=== PATIENT | female | born 1965 | race Two or more races ===

== ENCOUNTER 2018-01-04 13:44 | Emergency (ER) | payer SELFPAY ==
[~2018-01-04] VITALS: Ht 162.6 cm; Wt 71.2 kg
[2018-01-04 14:52] LABS: Basophils # (auto) 0.1 uL; Basophils % (auto) 0.6 % (0.0-2.0); Eosinophils # (auto) 0.1 uL; Eosinophils % (auto) 1.1 % (0.0-7.0); Hematocrit 43.9 % (36.0-46.0); Hemoglobin 15.4 g/dL (12.2-16.2); Lymphocytes # (auto) 2.7 uL; Lymphocytes % (auto) 25.4 % (10.0-50.0); Mean Corpuscular Hemoglobin 33.5 pg (28.0-32.0); Mean Corpuscular Volume 95.7 fL (80.0-100.0); Monocytes # (auto) 0.7 uL; Monocytes % (auto) 6.5 % (0.0-12.0); Neutrophils % (auto) 66.4 % (37.0-80.0); Nucleated Red Blood Cells % 0.1 %; Platelet Count (auto) 237 10^3/uL (140-450); Red Blood Cells 4.59 10^6/uL (4.0-5.20); Red Cell Distribution Width 12.5 % (11.8-14.3); White Blood Cell 10.6 10^3/uL (4.4-10.8)
[2018-01-04 14:58] LABS: Urine Bacteria NONE SEEN /hpf (None Seen); Urine Blood 1+ /uL (Negative); Urine Mucus FEW (None Seen); Urine Specific Gravity 1.035 (1.001-1.035); Urine WBC 6 /hpf (0 - 5)
[2018-01-04 15:17] LABS: Albumin 3.8 g/dL (3.4-5.0); BUN/Creatinine Ratio 20.9; Bilirubin, Total 0.9 mg/dL (0.2-1.0); Calcium 9.2 mg/dL (8.5-10.1); Potassium 3.7 mmol/L (3.5-5.1); Total Protein 8.2 g/dL (6.4-8.2)
[2018-01-04] MEDS ORDERED: SODIUM CHLORIDE 0.9% 1,000 ML IV ONE (15:45)
[2018-01-04] MEDS ORDERED: DONNATAL 5ml ORAL Elix (BELLADONNA ALK-PHENOBARB) PO ONE (16:00)
[2018-01-04] MEDS ORDERED: ALUM & MAG HYDROX-SIMETH LIQ(MAALOX) 30 ML PO ONE (16:00)
[2018-01-04] MEDS ORDERED: LIDOCAINE VISCOUS 2% 15ML UD PO ONE (16:00)
[2018-01-04] MEDS ORDERED: KETOROLAC TROMETH 30 MG/ML 1ML VIAL IV ONE (17:15)
[2018-01-04] MEDS: cloNIDine HCL 0.1 MG TAB ONE ×2 (17:57→18:00)
[2018-01-04] MEDS ORDERED: cloNIDine HCL 0.1 MG TAB PO ONE (18:45)
[2018-01-04 19:30] VITALS: BP 182/89
== END 2018-01-04 19:57 | disposition home or self-care (01) ==
LOC: ER 13:50
DX: K29.70 Gastritis, unspecified, without bleeding (principal); N20.0 Calculus of kidney; Z90.49 Acquired absence of other specified parts of digestive tract
CPT/HCPCS: 36415; 74176; 80053; 81001; 81025; 83690; 85025; 96361; 96374; 99285; J1885; J7030; 93005

== ENCOUNTER 2020-11-25 08:30 | Emergency (ER) | payer SELFPAY ==
[~2020-11-25] VITALS: Ht 152.4 cm; Wt 63.5 kg
[2020-11-25 08:40] VITALS: BP 173/97
== END 2020-11-25 09:37 | disposition left against medical advice (07) ==
LOC: ER 08:30
DX: R07.89 Other chest pain (principal); R42 Dizziness and giddiness; R06.02 Shortness of breath; R11.0 Nausea; Z53.21 Procedure and treatment not carried out due to patient leaving prior to being seen by health care provider
CPT/HCPCS: 71046; 93005

== ENCOUNTER → 2021-11-27 | Outpatient (CLI) | payer MEDICAID ==
[~2021-11-27] VITALS: Ht 147.3 cm; Wt 61.2 kg
[~2021-11-27] MED LIST: ADENOSINE 51 MG in GIVE UN-DILUTED 0 ML IV ONE; ADENOSINE 90 MG/30 ML INJ IV ONE
== END | disposition home or self-care (01) ==
LOC: Rad HDHVI 13:37
PROVIDERS: ATTEND Internal Medicine
DX: I25.2 Old myocardial infarction (principal); R07.9 Chest pain, unspecified; R06.02 Shortness of breath; I11.0 Hypertensive heart disease with heart failure; I50.9 Heart failure, unspecified; I42.9 Cardiomyopathy, unspecified; R06.09 Other forms of dyspnea; E78.5 Hyperlipidemia, unspecified; E11.9 Type 2 diabetes mellitus without complications
CPT/HCPCS: 78452; 93005; 96374; 96375; A9500; J0153

== ENCOUNTER 2022-02-04 18:37 | Emergency (ER) | payer MEDICAID ==
[~2022-02-04] VITALS: Ht 144.8 cm; Wt 62.0 kg
[2022-02-05 03:00] VITALS: BP 142/61
== END 2022-02-05 03:06 | disposition home or self-care (01) ==
LOC: ER 18:39
DX: Z48.01 Encounter for change or removal of surgical wound dressing (principal); Z90.49 Acquired absence of other specified parts of digestive tract

== ENCOUNTER → 2022-02-26 | Outpatient (CLI) | payer MEDICAID | END | disposition home or self-care (01) | LOC: Rad HDHVI 13:41 | PROVIDERS: ATTEND Internal Medicine | DX: I08.1 Rheumatic disorders of both mitral and tricuspid valves (principal); R07.9 Chest pain, unspecified; R06.02 Shortness of breath | CPT/HCPCS: 93306 ==

== ENCOUNTER 2022-08-30 23:57 | Inpatient (IN) | payer MEDICAID ==
[~2022-08-30] VITALS: Ht 160 cm; Wt 68.1 kg
[2022-08-31] MEDS ORDERED: MORPHINE SULFATE 4 MG/ML SYR/VIAL IV ONE ×2 (00:15→02:15)
[2022-08-31] MEDS ORDERED: ONDANSETRON HCL 4 MG/2 ML VIAL IV ONE ×2 (00:15→02:15)
[2022-08-31 00:29] LABS: Basophils # (auto) 0.1 10 ^3/uL (0-0.2); Basophils % (auto) 0.7 % (0.0-2.0); Eosinophils # (auto) 0.1 10 ^3/uL (0-0.8); Eosinophils % (auto) 1.2 % (0.0-7.0); Hematocrit 38.1 % (36.0-46.0); Hemoglobin 13.5 g/dL (12.2-16.2); Lymphocytes % (auto) 37.7 % (10.0-50.0); Mean Corpuscular Hemoglobin 32.6 pg (28.0-32.0); Mean Corpuscular Hgb Conc. 35.3 g/dL (32.0-36.0); Mean Corpuscular Volume 92.4 fL (80.0-100.0); Monocytes # (auto) 0.7 10 ^3/uL (0-1.3); Neutrophils # (auto) 4.1 10 ^3/uL (1.6-8.6); Neutrophils % (auto) 51.4 % (37.0-80.0); Nucleated Red Blood Cells % 0.1 %; Red Blood Cells 4.13 10^6/uL (4.0-5.20); Red Cell Distribution Width 13.3 % (11.8-14.3)
[2022-08-31 01:06] LABS: Albumin 3.9 g/dL (3.4-5.0); BUN/Creatinine Ratio 17.8 (10.0-20.0); Calcium 9.2 mg/dL (8.5-10.1); INR 0.94 (0.9-1.15); Magnesium 2.2 mg/dL (1.6-2.6); Partial Thromboplastin Time 25.9 sec (24.6-33.4); Potassium 3.5 mmol/L (3.5-5.1)
[2022-08-31 01:08] LABS: Bilirubin, Total 0.5 mg/dL (0.2-1.0); Total Protein 7.4 g/dL (6.4-8.2)
[2022-08-31] MEDS ORDERED: LACTATED RINGER'S 1,000 ML IV ONE (02:15)
[2022-08-31] MEDS ORDERED: ATORVASTATIN 20 MG TAB PO ONE (02:15)
[2022-08-31] MEDS ORDERED: HEPARIN DRIP/D5W 100UNITS/ML 250 ML IV SCH (02:15)
[2022-08-31] MEDS ORDERED: METOPROLOL TARTRATE 1MG/1ML-5ML VIAL IV ONE (02:15)
[2022-08-31] MEDS ORDERED: HEPARIN SODIUM (PORCINE) 5000 UNITS/ML 1ML VIAL IV ONE (02:15)
[2022-08-31] MEDS ORDERED: ONDANSETRON HCL 4 MG/2 ML VIAL IV PRN (06:15)
[2022-08-31] MEDS ORDERED: DOCUSATE SOD 100 MG CAP PO PRN (06:15)
[2022-08-31] MEDS ORDERED: DEXTROSE (50%) 50ML SYRG IV PRN (06:15)
[2022-08-31] MEDS: ACCU-CHEK COMFORT CURVE STRIP VI SCH ×4 (06:53→22:28)
[2022-08-31 06:54] LABS: Basophils # (auto) 0.1 10 ^3/uL (0-0.2); Basophils % (auto) 0.5 % (0.0-2.0); Eosinophils # (auto) 0.1 10 ^3/uL (0-0.8); Hematocrit 38.2 % (36.0-46.0); Hemoglobin 12.8 g/dL (12.2-16.2); Lymphocytes % (auto) 18.1 % (10.0-50.0); Mean Corpuscular Hemoglobin 31.9 pg (28.0-32.0); Mean Corpuscular Hgb Conc. 33.4 g/dL (32.0-36.0); Mean Corpuscular Volume 95.5 fL (80.0-100.0); Monocytes # (auto) 0.7 10 ^3/uL (0-1.3); Monocytes % (auto) 6.7 % (0.0-12.0); Neutrophils # (auto) 8.3 10 ^3/uL (1.6-8.6); Neutrophils % (auto) 73.7 % (37.0-80.0); Nucleated Red Blood Cells % 0.1 %; Red Cell Distribution Width 12.7 % (11.8-14.3); White Blood Cell 11.2 10^3/uL (4.4-10.8)
[2022-08-31] MEDS: InsuLIN REG 1unit/0.01ml Soln (100units/ml) SC SCH ×4 (06:57→22:32)
[2022-08-31 07:04] LABS: Albumin 3.4 g/dL (3.4-5.0); Calcium 8.8 mg/dL (8.5-10.1); Potassium 3.9 mmol/L (3.5-5.1)
[2022-08-31 07:06] LABS: BUN/Creatinine Ratio 22.1 (10.0-20.0); Total Protein 7.1 g/dL (6.4-8.2)
[2022-08-31] MEDS ORDERED: NITROGLYCERIN 0.4 MG SL TAB SL PRN (07:30)
[2022-08-31] MEDS ORDERED: MORPHINE SULFATE INJ 2 MG/ml SYRG IV PRN (07:30)
[2022-08-31] MEDS: FUROSEMIDE 20 MG/2 ML VIAL IV SCH (09:15)
[2022-08-31] MEDS: ASPirin 81 mg TAB PO SCH (09:16)
[2022-08-31] MEDS: CARVEDILOL 3.125 MG TAB PO SCH ×2 (09:16→22:32)
[2022-08-31 11:17] LABS: INR 1.01 (0.9-1.15); Partial Thromboplastin Time 64.1 sec (24.6-33.4)
[2022-08-31] MEDS: SODIUM CHLOR 0.9% PF (SALINE LOCK) 10ML VIAL/SYR IV SCH ×2 (14:04→21:55)
[2022-08-31 17:12] LABS: INR 1.02 (0.9-1.15)
[2022-08-31] MEDS: HYDROcodone-ACET 5/325MG TAB PO PRN (21:55)
[2022-08-31] MEDS: ATORVASTATIN 20 MG TAB PO SCH (22:32)
[2022-08-31 23:02] LABS: INR 1.02 (0.9-1.15); Partial Thromboplastin Time 46.1 sec (24.6-33.4)
[2022-08-31] MEDS: HEPARIN DRIP/D5W 100UNITS/ML 250 ML IV SCH (23:52)
[2022-09-01] MEDS: SODIUM CHLOR 0.9% PF (SALINE LOCK) 10ML VIAL/SYR IV SCH ×3 (06:00→22:29)
[2022-09-01 06:15] LABS: Potassium 4.2 mmol/L (3.5-5.1)
[2022-09-01 06:22] LABS: Albumin 3.2 g/dL (3.4-5.0); BUN/Creatinine Ratio 29.2 (10.0-20.0); Bilirubin, Total 0.7 mg/dL (0.2-1.0); Total Protein 6.6 g/dL (6.4-8.2)
[2022-09-01 06:31] LABS: Basophils # (auto) 0 10 ^3/uL (0-0.2); Basophils % (auto) 0.3 % (0.0-2.0); Eosinophils # (auto) 0.1 10 ^3/uL (0-0.8); Eosinophils % (auto) 1.4 % (0.0-7.0); Hemoglobin 12.5 g/dL (12.2-16.2); Lymphocytes % (auto) 33.3 % (10.0-50.0); Mean Corpuscular Hemoglobin 32.7 pg (28.0-32.0); Mean Corpuscular Hgb Conc. 34.6 g/dL (32.0-36.0); Mean Corpuscular Volume 94.6 fL (80.0-100.0); Monocytes # (auto) 0.6 10 ^3/uL (0-1.3); Monocytes % (auto) 7.3 % (0.0-12.0); Neutrophils # (auto) 5.1 10 ^3/uL (1.6-8.6); Neutrophils % (auto) 57.7 % (37.0-80.0); Nucleated Red Blood Cells % 0.4 %; Red Cell Distribution Width 12.7 % (11.8-14.3); White Blood Cell 8.9 10^3/uL (4.4-10.8)
[2022-09-01 06:35] LABS: INR 1.01 (0.9-1.15)
[2022-09-01 06:38] LABS: Partial Thromboplastin Time 80.1 sec (24.6-33.4)
[2022-09-01] MEDS: ACCU-CHEK COMFORT CURVE STRIP VI SCH ×4 (06:59→22:30)
[2022-09-01] MEDS: InsuLIN REG 1unit/0.01ml Soln (100units/ml) SC SCH ×4 (07:03→22:41)
[2022-09-01] MEDS: CARVEDILOL 3.125 MG TAB PO SCH ×2 (09:57→22:30)
[2022-09-01] MEDS: ASPirin 81 mg TAB PO SCH (09:57)
[2022-09-01] MEDS: FUROSEMIDE 20 MG/2 ML VIAL IV SCH (09:58)
[2022-09-01] MEDS: HEPARIN DRIP/D5W 100UNITS/ML 250 ML IV SCH (11:17)
[2022-09-01 13:39] LABS: INR 0.96 (0.9-1.15); Partial Thromboplastin Time 31.6 sec (24.6-33.4)
[2022-09-01] MEDS ORDERED: ROSU1TAB15 (16:22)
[2022-09-01] MEDS ORDERED: SPIR25TA8 PO (16:22)
[2022-09-01] MEDS ORDERED: LOS25T PO (16:22)
[2022-09-01] MEDS ORDERED: FURO40TA4 PO (16:22)
[2022-09-01] MEDS: HYDROcodone-ACET 5/325MG TAB PO PRN (16:23)
[2022-09-01] MEDS ORDERED: SACU1TAB PO (16:29)
[2022-09-01] MEDS ORDERED: CARV6.2551 PO (16:29)
[2022-09-01] MEDS ORDERED: CLOP75TA70 (16:29)
[2022-09-01 17:26] VITALS: BP 140/67
[2022-09-01 22:00] VITALS: BP 109/61
[2022-09-01] MEDS: ATORVASTATIN 20 MG TAB PO SCH (22:30)
[2022-09-02 05:00] VITALS: BP 110/69
[2022-09-02] MEDS: SODIUM CHLOR 0.9% PF (SALINE LOCK) 10ML VIAL/SYR IV SCH ×2 (05:55→15:13)
[2022-09-02] MEDS: ACCU-CHEK COMFORT CURVE STRIP VI SCH ×2 (06:22→12:18)
[2022-09-02] MEDS: InsuLIN REG 1unit/0.01ml Soln (100units/ml) SC SCH ×2 (06:26→11:30)
[2022-09-02 08:59] VITALS: BP 115/66
[2022-09-02] MEDS: CARVEDILOL 3.125 MG TAB PO SCH (10:48)
[2022-09-02] MEDS: ASPirin 81 mg TAB PO SCH (10:49)
[2022-09-02] MEDS: FUROSEMIDE 20 MG/2 ML VIAL IV SCH (10:50)
[2022-09-02 12:40] VITALS: BP 111/64
[2022-09-02 14:28] VITALS: BP 111/64
[2022-09-02 16:32] VITALS: BP 119/71
== END 2022-09-02 17:12 | disposition home or self-care (01) | DRG 190 ==
LOC: ER 23:57 → EDBD 23:57 → TELE 08-31 07:30 → TELE-WESTW 09-01 15:55
PROVIDERS: ADMIT Nurse Practitioner Family; ATTEND Family Medicine
DX: I21.4 Non-ST elevation (NSTEMI) myocardial infarction (principal); N17.9 Acute kidney failure, unspecified; Z20.822 Contact with and (suspected) exposure to COVID-19; I50.9 Heart failure, unspecified; R74.01 Elevation of levels of liver transaminase levels; R07.89 Other chest pain; E78.00 Pure hypercholesterolemia, unspecified; R73.9 Hyperglycemia, unspecified; I25.10 Atherosclerotic heart disease of native coronary artery without angina pectoris; I25.5 Ischemic cardiomyopathy; Z82.49 Family history of ischemic heart disease and other diseases of the circulatory system; I25.2 Old myocardial infarction; Z83.3 Family history of diabetes mellitus; Z86.73 Personal history of transient ischemic attack (TIA), and cerebral infarction without residual deficits; Z98.61 Coronary angioplasty status; Z90.49 Acquired absence of other specified parts of digestive tract
CPT/HCPCS: 36415; 71045; 80053; 82962; 83036; 83735; 83880; 84484; 85025; 85610; 85730; 87426; 93005; 96361; 96365; 96366; 96375; 96376; 99291; G0378; J1815; J2405

== ENCOUNTER 2022-09-14 23:00 | Inpatient (IN) | payer MEDICAID ==
[~2022-09-14] VITALS: Ht 147.3 cm; Wt 68.8 kg
[~2022-09-14 23:00] MED LIST changes: -ADENOSINE 51 MG in GIVE UN-DILUTED 0 ML IV ONE; -ADENOSINE 90 MG/30 ML INJ IV ONE; +CARV6.2551 PO; +CLOP75TA70; +FURO40TA4 PO; +ROSU1TAB15; +SACU1TAB PO; +SPIR25TA8 PO
[2022-09-14 23:23] LABS: Basophils # (auto) 0 10 ^3/uL (0-0.2); Basophils % (auto) 0.6 % (0.0-2.0); Eosinophils # (auto) 0.1 10 ^3/uL (0-0.8); Eosinophils % (auto) 1.1 % (0.0-7.0); Hematocrit 35.5 % (36.0-46.0); Hemoglobin 12.2 g/dL (12.2-16.2); Lymphocytes % (auto) 38.3 % (10.0-50.0); Mean Corpuscular Hemoglobin 32.1 pg (28.0-32.0); Mean Corpuscular Hgb Conc. 34.2 g/dL (32.0-36.0); Mean Corpuscular Volume 93.8 fL (80.0-100.0); Monocytes # (auto) 0.6 10 ^3/uL (0-1.3); Neutrophils # (auto) 4.1 10 ^3/uL (1.6-8.6); Nucleated Red Blood Cells % 0.1 %; Red Blood Cells 3.79 10^6/uL (4.0-5.20); Red Cell Distribution Width 12.7 % (11.8-14.3); White Blood Cell 7.9 10^3/uL (4.4-10.8)
[2022-09-14 23:37] LABS: INR 0.97 (0.9-1.15); Partial Thromboplastin Time 23.8 sec (24.6-33.4)
[2022-09-14 23:42] LABS: Albumin 3.6 g/dL (3.4-5.0); Calcium 8.8 mg/dL (8.5-10.1); Magnesium 2.2 mg/dL (1.6-2.6); Potassium 4.1 mmol/L (3.5-5.1)
[2022-09-14 23:45] LABS: Bilirubin, Total 0.4 mg/dL (0.2-1.0); Total Protein 6.4 g/dL (6.4-8.2)
[2022-09-15] MEDS ORDERED: HEPARIN DRIP/D5W 100UNITS/ML 250 ML IV SCH (02:30)
[2022-09-15] MEDS ORDERED: HEPARIN SODIUM (PORCINE) 5000 UNITS/ML 1ML VIAL IV ONE (02:30)
[2022-09-15] MEDS ORDERED: MORPHINE SULFATE INJ 2 MG/ml SYRG IV PRN (02:45)
[2022-09-15] MEDS ORDERED: NITROGLYCERIN 0.4 MG SL TAB SL PRN (02:45)
[2022-09-15] MEDS ORDERED: SODIUM CHLORIDE 0.9% 1,000 ML IV SCH (02:45)
[2022-09-15] MEDS ORDERED: IBUPROFEN 600 MG TAB PO PRN (02:45)
[2022-09-15] MEDS ORDERED: HYDROcodone-ACET 5/325MG TAB PO PRN (02:45)
[2022-09-15] MEDS ORDERED: DOCUSATE SOD 100 MG CAP PO PRN (02:45)
[2022-09-15 04:11] LABS: Basophils # (auto) 0 10 ^3/uL (0-0.2); Basophils % (auto) 0.5 % (0.0-2.0); Eosinophils # (auto) 0.1 10 ^3/uL (0-0.8); Eosinophils % (auto) 1.1 % (0.0-7.0); Hematocrit 36.3 % (36.0-46.0); Hemoglobin 12.1 g/dL (12.2-16.2); Lymphocytes # (auto) 3.1 10 ^3/uL (0.4-5.4); Lymphocytes % (auto) 37.2 % (10.0-50.0); Mean Corpuscular Hemoglobin 32.2 pg (28.0-32.0); Mean Corpuscular Hgb Conc. 33.2 g/dL (32.0-36.0); Mean Corpuscular Volume 96.7 fL (80.0-100.0); Monocytes # (auto) 0.7 10 ^3/uL (0-1.3); Monocytes % (auto) 8.8 % (0.0-12.0); Neutrophils # (auto) 4.4 10 ^3/uL (1.6-8.6); Neutrophils % (auto) 52.4 % (37.0-80.0); Nucleated Red Blood Cells % 0.3 %; Red Blood Cells 3.75 10^6/uL (4.0-5.20); Red Cell Distribution Width 12.7 % (11.8-14.3); White Blood Cell 8.4 10^3/uL (4.4-10.8)
[2022-09-15 04:19] LABS: Albumin 3.4 g/dL (3.4-5.0); Calcium 8.7 mg/dL (8.5-10.1); Potassium 3.8 mmol/L (3.5-5.1)
[2022-09-15 04:23] LABS: Bilirubin, Total 0.4 mg/dL (0.2-1.0); Total Protein 6.6 g/dL (6.4-8.2)
[2022-09-15 04:30] LABS: INR 0.96 (0.9-1.15); Partial Thromboplastin Time 22.8 sec (24.6-33.4)
[2022-09-15] MEDS: ASPirin 81 mg TAB PO SCH (10:16)
[2022-09-15 12:09] LABS: Partial Thromboplastin Time 75.2 sec (24.6-33.4)
[2022-09-15] MEDS: MORPHINE SULFATE INJ 2 MG/ml SYRG IV PRN ×2 (14:46→20:32)
[2022-09-15] MEDS: ONDANSETRON HCL 4 MG/2 ML VIAL IV PRN ×2 (14:46→20:32)
[2022-09-15 16:10] LABS: Urine Bacteria NONE SEEN /hpf (None Seen); Urine Blood Negative /uL (Negative); Urine WBC 1 /hpf (0 - 5)
[2022-09-15 16:15] LABS: Urine Specific Gravity > 1.050 (1.001-1.035)
[2022-09-15 16:25] LABS: Alcohol, Urine < 3.0 mg/dL (0-10); Amphetamine Screen, Urine NEGATIVE (NEGATIVE); Barbiturate Scree,Urine NEGATIVE (NEGATIVE); Benzodiazephine Screen, Urine NEGATIVE (NEGATIVE); Cannabinoid Screen, Urine NEGATIVE (NEGATIVE); Cocaine Screen, Urine NEGATIVE (NEGATIVE); Opiate Scree,Urine NEGATIVE (NEGATIVE); Phencyclidine Screen, Urine NEGATIVE (NEGATIVE)
[2022-09-15] MEDS: SUCRALFATE 1 GM TAB PO SCH ×2 (17:35→22:11)
[2022-09-15] MEDS ORDERED: ATORVASTATIN 20 MG TAB PO SCH (22:00)
[2022-09-15] MEDS: METOPROLOL TARTRATE 25 MG TAB PO SCH (22:12)
[2022-09-15] MEDS: RANOLAZINE ER 500 MG TAB PO SCH (22:13)
[2022-09-16 00:30] VITALS: BP 152/80
[2022-09-16 05:00] VITALS: BP 108/58
[2022-09-16] MEDS: SUCRALFATE 1 GM TAB PO SCH ×2 (06:14→11:30)
[2022-09-16 07:00] LABS: Basophils # (auto) 0 10 ^3/uL (0-0.2); Basophils % (auto) 0.4 % (0.0-2.0); Eosinophils # (auto) 0.2 10 ^3/uL (0-0.8); Eosinophils % (auto) 1.6 % (0.0-7.0); Hematocrit 35.7 % (36.0-46.0); Hemoglobin 12.1 g/dL (12.2-16.2); Lymphocytes # (auto) 3.2 10 ^3/uL (0.4-5.4); Lymphocytes % (auto) 28.6 % (10.0-50.0); Mean Corpuscular Hemoglobin 31.8 pg (28.0-32.0); Mean Corpuscular Volume 93.4 fL (80.0-100.0); Monocytes # (auto) 0.8 10 ^3/uL (0-1.3); Monocytes % (auto) 7.5 % (0.0-12.0); Neutrophils # (auto) 6.8 10 ^3/uL (1.6-8.6); Neutrophils % (auto) 61.9 % (37.0-80.0); Nucleated Red Blood Cells % 0.2 %; Red Blood Cells 3.82 10^6/uL (4.0-5.20); Red Cell Distribution Width 12.8 % (11.8-14.3); White Blood Cell 11.1 10^3/uL (4.4-10.8)
[2022-09-16 07:12] LABS: Potassium 4.3 mmol/L (3.5-5.1)
[2022-09-16 07:28] LABS: Albumin 3.3 g/dL (3.4-5.0); BUN/Creatinine Ratio 21.6 (10.0-20.0); Bilirubin, Total 0.8 mg/dL (0.2-1.0); Total Protein 6.5 g/dL (6.4-8.2)
[2022-09-16 09:03] VITALS: BP 116/63
[2022-09-16] MEDS: RANOLAZINE ER 500 MG TAB PO SCH (09:57)
[2022-09-16] MEDS: ASPirin 81 mg TAB PO SCH (09:57)
[2022-09-16] MEDS ORDERED: ENOXAPARIN SOD 40 MG/0.4 ML SYRINGE SC SCH (10:00)
[2022-09-16] MEDS ORDERED: PANTOPRAZOLE 40 MG TAB PO SCH (10:00)
[2022-09-16] MEDS: METOPROLOL TARTRATE 25 MG TAB PO SCH (10:01)
[2022-09-16] MEDS ORDERED: ADENOSINE 58 MG in GIVE UN-DILUTED 0 ML IV STA (11:14)
[2022-09-16 12:20] VITALS: BP 109/58
[2022-09-16] MEDS ORDERED: SUCR1TAB PO (13:48)
[2022-09-16] MEDS ORDERED: PANT40T PO (13:48)
[2022-09-16 16:20] VITALS: BP 108/63
[2022-09-16 18:03] VITALS: BP 109/58
== END 2022-09-16 18:40 | disposition home or self-care (01) | DRG 198 ==
LOC: ER 23:00 → EDBD 23:00 → TELE 09-15 02:42 → TELE-WESTW 09-15 22:56
PROVIDERS: ADMIT Nurse Practitioner Family; ATTEND Hospitalist
DX: R07.9 Chest pain, unspecified (principal); I25.2 Old myocardial infarction; I11.0 Hypertensive heart disease with heart failure; I50.9 Heart failure, unspecified; E11.65 Type 2 diabetes mellitus with hyperglycemia; R26.81 Unsteadiness on feet; I25.5 Ischemic cardiomyopathy; Z20.822 Contact with and (suspected) exposure to COVID-19; Z86.73 Personal history of transient ischemic attack (TIA), and cerebral infarction without residual deficits; Z79.899 Other long term (current) drug therapy; Z90.49 Acquired absence of other specified parts of digestive tract; Z82.49 Family history of ischemic heart disease and other diseases of the circulatory system; Z83.3 Family history of diabetes mellitus; Z79.84 Long term (current) use of oral hypoglycemic drugs
CPT/HCPCS: 36415; 71045; 71275; 78452; 80053; 80307; 81001; 83735; 83880; 84484; 85025; 85379; 85610; 85730; 87081; 87426; 93005; 96365; 96366; 96375; 96376; G0378; J0153; J2405

== ENCOUNTER → 2022-10-03 | Outpatient (CLI) | payer MEDICAID ==
[~2022-10-03] MED LIST changes: +PANT40T PO; +SUCR1TAB PO
== END | disposition home or self-care (01) ==
LOC: XYW 09:54
PROVIDERS: ATTEND Internal Medicine
DX: I08.3 Combined rheumatic disorders of mitral, aortic and tricuspid valves (principal); I50.20 Unspecified systolic (congestive) heart failure
CPT/HCPCS: 93306

== ENCOUNTER → 2022-10-03 | Outpatient (CLI) | payer MEDICAID ==
[2022-10-03 09:17] LABS: Basophils # (auto) 0.1 10 ^3/uL (0-0.2); Eosinophils # (auto) 0.1 10 ^3/uL (0-0.8); Eosinophils % (auto) 1.4 % (0.0-7.0); Hematocrit 37.6 % (36.0-46.0); Hemoglobin 12.8 g/dL (12.2-16.2); Lymphocytes # (auto) 3.4 10 ^3/uL (0.4-5.4); Lymphocytes % (auto) 38.4 % (10.0-50.0); Mean Corpuscular Hemoglobin 31.6 pg (28.0-32.0); Mean Corpuscular Hgb Conc. 34.1 g/dL (32.0-36.0); Mean Corpuscular Volume 92.8 fL (80.0-100.0); Monocytes # (auto) 0.6 10 ^3/uL (0-1.3); Monocytes % (auto) 6.6 % (0.0-12.0); Neutrophils # (auto) 4.7 10 ^3/uL (1.6-8.6); Neutrophils % (auto) 52.6 % (37.0-80.0); Nucleated Red Blood Cells % 0.1 %; Red Blood Cells 4.05 10^6/uL (4.0-5.20); Red Cell Distribution Width 12.8 % (11.8-14.3); White Blood Cell 8.9 10^3/uL (4.4-10.8)
[2022-10-03 09:48] LABS: Albumin 3.7 g/dL (3.4-5.0); Calcium 9.4 mg/dL (8.5-10.1); Potassium 4.3 mmol/L (3.5-5.1)
[2022-10-03 09:55] LABS: BUN/Creatinine Ratio 16.2 (10.0-20.0); Bilirubin, Total 0.4 mg/dL (0.2-1.0)
[2022-10-03 09:57] LABS: Free T4 (Free Thyroxine) 0.99 ng/dL (0.89-1.76)
[2022-10-03 09:58] LABS: Free T3 2.85 pg/mL (2.3-4.2)
== END | disposition home or self-care (01) ==
LOC: LAB 08:59
PROVIDERS: ATTEND Internal Medicine
DX: I25.10 Atherosclerotic heart disease of native coronary artery without angina pectoris (principal); I10 Essential (primary) hypertension; E78.5 Hyperlipidemia, unspecified; I42.9 Cardiomyopathy, unspecified
CPT/HCPCS: 36415; 80053; 80061; 83036; 84439; 84443; 84481; 85025

== ENCOUNTER → 2023-01-21 | Outpatient (CLI) | payer MEDICAID ==
[~2023-01-21] MED LIST changes: +BACDST PO; +NITR-87 PO; +TRAM50TA2 PO; +ZOFR4T PO
== END | disposition home or self-care (01) ==
LOC: LAB 12:06
PROVIDERS: ATTEND Internal Medicine
DX: E11.65 Type 2 diabetes mellitus with hyperglycemia (principal)
CPT/HCPCS: 36415; 83036

== ENCOUNTER → 2023-01-21 | Outpatient (CLI) | payer MEDICAID | END | disposition home or self-care (01) | LOC: XYW 14:30 | PROVIDERS: ATTEND Internal Medicine | DX: I08.1 Rheumatic disorders of both mitral and tricuspid valves (principal); I25.5 Ischemic cardiomyopathy | CPT/HCPCS: 93306 ==

== ENCOUNTER 2023-03-31 13:42 | Emergency (ER) | payer MEDICAID ==
[~2023-03-31] VITALS: Ht 162.6 cm; Wt 90.0 kg
[2023-03-31] MEDS ORDERED: NITROGLYCERIN 2% OINT 1GM PKG TD ONE (14:00)
[2023-03-31 14:21] LABS: Basophils # (auto) 0 10 ^3/uL (0-0.2); Basophils % (auto) 0.6 % (0.0-2.0); Eosinophils # (auto) 0.1 10 ^3/uL (0-0.8); Eosinophils % (auto) 1.6 % (0.0-7.0); Hematocrit 39.3 % (36.0-46.0); Hemoglobin 13.1 g/dL (12.2-16.2); Lymphocytes # (auto) 2.5 10 ^3/uL (0.4-5.4); Lymphocytes % (auto) 30.3 % (10.0-50.0); Mean Corpuscular Hemoglobin 31.9 pg (28.0-32.0); Mean Corpuscular Hgb Conc. 33.4 g/dL (32.0-36.0); Mean Corpuscular Volume 95.6 fL (80.0-100.0); Monocytes # (auto) 0.5 10 ^3/uL (0-1.3); Monocytes % (auto) 6.2 % (0.0-12.0); Neutrophils % (auto) 61.3 % (37.0-80.0); Nucleated Red Blood Cells % 0.1 %; Red Blood Cells 4.11 10^6/uL (4.0-5.20); Red Cell Distribution Width 12.8 % (11.8-14.3); White Blood Cell 8.2 10^3/uL (4.4-10.8)
[2023-03-31 14:39] LABS: INR 0.99 (0.9-1.15); Partial Thromboplastin Time 25.9 SEC (24.5-34.5); Prothrombin Time 10.4 sec (9.3-11.8)
[2023-03-31 14:43] LABS: Alanine Aminotransferase 46 U/L (7-40); Albumin 4.6 g/dL (3.2-4.8); Alkaline Phosphatase 102 U/L (46-116); Anion Gap 6 (5-15); Aspartate Aminotransferase 49 U/L (13-40); BUN/Creatinine Ratio 18.4 (10.0-20.0); Blood Urea Nitrogen 21 mg/dL (9-23); Calcium 9.5 mg/dL (8.5-10.1); Carbon Dioxide 26 mmol/L (20-30); Chloride 109 mmol/L (98-107); Cholesterol 135 mg/dL (< 200); Glucose 131 mg/dL (74-106); HDL Cholesterol 42 mg/dL (40-59); LDL Cholesterol 69 mg/dL (< 100); Potassium 4.3 mmol/L (3.5-5.1); Sodium 141 mmol/L (136-145); Triglycerides 203 mg/dL (< 150)
[2023-03-31 14:44] LABS: Bilirubin, Total 0.7 mg/dL (0.2-1.0); Total Protein 6.8 g/dL (5.7-8.2)
[2023-03-31 15:14] LABS: Lipase 95 U/L (12-53); Magnesium 1.9 mg/dL (1.6-2.6)
[2023-03-31 17:44] VITALS: BP 136/85; PULSE 84; RESP 20; TEMP 98.8; O2SAT 95
== END 2023-03-31 17:46 | disposition home or self-care (01) ==
LOC: ER 13:42 → EDBD 13:42 → ER 17:45
DX: R07.89 Other chest pain (principal); I50.9 Heart failure, unspecified; Z79.899 Other long term (current) drug therapy; Z86.73 Personal history of transient ischemic attack (TIA), and cerebral infarction without residual deficits; Z90.49 Acquired absence of other specified parts of digestive tract; Z98.890 Other specified postprocedural states
CPT/HCPCS: 36415; 71045; 80053; 80061; 83690; 83735; 83880; 84484; 85025; 85610; 85730; 93005

== ENCOUNTER 2023-10-10 21:40 | Emergency (ER) | payer MEDICAID ==
[~2023-10-10] VITALS: Ht 144.8 cm; Wt 65.0 kg
[~2023-10-10 21:40] MED LIST changes: -ROSU1TAB15; +ROSU40TA47
[2023-10-10 22:05] VITALS: BP 133/71; TEMP 98.4
[2023-10-10 22:21] LABS: Basophils # (auto) 0 10 ^3/uL (0-0.2); Basophils % (auto) 0.5 % (0.0-2.0); Eosinophils # (auto) 0.1 10 ^3/uL (0-0.8); Hematocrit 38.6 % (36.0-46.0); Lymphocytes # (auto) 2.2 10 ^3/uL (0.4-5.4); Lymphocytes % (auto) 36.6 % (10.0-50.0); Mean Corpuscular Hemoglobin 32.7 pg (28.0-32.0); Mean Corpuscular Hgb Conc. 33.8 g/dL (32.0-36.0); Mean Corpuscular Volume 96.7 fL (80.0-100.0); Monocytes # (auto) 0.8 10 ^3/uL (0-1.3); Monocytes % (auto) 13.4 % (0.0-12.0); Neutrophils % (auto) 48.5 % (37.0-80.0); Nucleated Red Blood Cells % 0.1 %; Red Blood Cells 3.99 10^6/uL (4.0-5.20); Red Cell Distribution Width 12.4 % (11.8-14.3); White Blood Cell 6.1 10^3/uL (4.4-10.8)
[2023-10-10 22:23] LABS: Chloride 108 mmol/L (98-107); Potassium 4.1 mmol/L (3.5-5.1); Sodium 140 mmol/L (136-145)
[2023-10-10 22:24] LABS: Anion Gap 8 (5-15); Calcium 9.8 mg/dL (8.5-10.1); Carbon Dioxide 24 mmol/L (20-30)
[2023-10-10 22:26] VITALS: RESP 24; O2SAT 93
[2023-10-10 22:29] LABS: BUN/Creatinine Ratio 17.2 (10.0-20.0); Blood Urea Nitrogen 17 mg/dL (9-23); Glucose 253 mg/dL (74-106)
[2023-10-10 22:47] VITALS: PULSE 100
== END 2023-10-10 23:44 | disposition home or self-care (01) ==
LOC: EDBD 21:40 → EDUNIT# 21:40 → ER 21:40 → EDSEX 21:40 → ER 23:44
DX: R07.89 Other chest pain (principal); I50.9 Heart failure, unspecified; Z86.73 Personal history of transient ischemic attack (TIA), and cerebral infarction without residual deficits; Z90.49 Acquired absence of other specified parts of digestive tract
CPT/HCPCS: 36415; 71045; 80048; 84484; 85025; 93005

== ENCOUNTER → 2023-10-15 | Outpatient (CLI) | payer MEDICAID ==
[~2023-10-15] VITALS: Ht 144.8 cm; Wt 65.8 kg
[2023-10-15] MEDS: ADENOSINE 55 MG in GIVE UN-DILUTED 0 ML IV ONE (11:32)
== END | disposition home or self-care (01) ==
LOC: XYW 10:40
PROVIDERS: ATTEND Internal Medicine
DX: I11.0 Hypertensive heart disease with heart failure (principal); I50.22 Chronic systolic (congestive) heart failure; I25.5 Ischemic cardiomyopathy; I25.9 Chronic ischemic heart disease, unspecified; E11.65 Type 2 diabetes mellitus with hyperglycemia; E66.9 Obesity, unspecified
CPT/HCPCS: 78452; 93017; A9500; J0153

== ENCOUNTER 2023-10-31 17:25 | Emergency (ER) | payer MEDICAID ==
[~2023-10-31] VITALS: Ht 144.8 cm; Wt 68.1 kg
[2023-10-31 18:23] VITALS: BP 15/70; PULSE 91; RESP 18; TEMP 97.9; O2SAT 95
[2023-10-31] MEDS: HYDROcodone-ACET 5/325MG TAB PO ONE (18:45)
[2023-10-31] MEDS ORDERED: NABU-72 PO (21:03)
[2023-10-31] MEDS ORDERED: PRED20TA2 PO (21:03)
== END 2023-10-31 21:45 | disposition home or self-care (01) ==
LOC: ER 17:25
DX: M25.552 Pain in left hip (principal); Z90.49 Acquired absence of other specified parts of digestive tract; Z86.73 Personal history of transient ischemic attack (TIA), and cerebral infarction without residual deficits
CPT/HCPCS: 73700

== ENCOUNTER 2024-02-29 19:19 | Emergency (ER) | payer MEDICAID ==
[~2024-02-29] VITALS: Ht 147.3 cm; Wt 73.2 kg
[~2024-02-29 19:19] MED LIST changes: +NABU-72 PO; +PRED20TA2 PO
[2024-02-29 20:34] LABS: Basophils # (auto) 0 10 ^3/uL (0-0.2); Basophils % (auto) 0.3 % (0.0-2.0); Eosinophils # (auto) 0.1 10 ^3/uL (0-0.8); Eosinophils % (auto) 1.4 % (0.0-7.0); Hemoglobin 13.2 g/dL (12.2-16.2); White Blood Cell 7.5 10^3/uL (4.4-10.8)
[2024-02-29 20:34] LABS: COVID19 ANTIGEN SOFIA FIA NEGATIVE (NEGATIVE); Rapid Influenza A Negative (Negative); Rapid Influenza B Negative (Negative)
[2024-02-29 20:35] LABS: Hematocrit 38.2 % (36.0-46.0); Lymphocytes # (auto) 1.5 10 ^3/uL (0.4-5.4); Lymphocytes % (auto) 20.6 % (10.0-50.0); Mean Corpuscular Hgb Conc. 34.5 g/dL (32.0-36.0); Mean Corpuscular Volume 98.6 fL (80.0-100.0); Monocytes # (auto) 0.6 10 ^3/uL (0-1.3); Monocytes % (auto) 8.1 % (0.0-12.0); Neutrophils # (auto) 5.2 10 ^3/uL (1.6-8.6); Neutrophils % (auto) 69.6 % (37.0-80.0); Nucleated Red Blood Cells % 0.1 %; Platelet Count (auto) 188 10^3/uL (140-450); Red Blood Cells 3.87 10^6/uL (4.0-5.20); Red Cell Distribution Width 12.5 % (11.8-14.3)
[2024-02-29 20:51] LABS: Alanine Aminotransferase 440 U/L (7-40); Albumin 4.5 g/dL (3.2-4.8); Alkaline Phosphatase 278 U/L (46-116); Anion Gap 9 (5-15); Aspartate Aminotransferase 365 U/L (13-40); BUN/Creatinine Ratio 14.3 (10.0-20.0); Bilirubin, Total 1.5 mg/dL (0.2-1.0); Blood Urea Nitrogen 15 mg/dL (9-23); Calcium 9.6 mg/dL (8.7-10.4); Carbon Dioxide 22 mmol/L (20-30); Chloride 109 mmol/L (98-107); Glucose 179 mg/dL (74-106); Potassium 4.3 mmol/L (3.5-5.1); Sodium 140 mmol/L (136-145); Total Protein 6.6 g/dL (5.7-8.2)
[2024-02-29 21:06] LABS: Urine Bacteria None Seen /hpf (None Seen)
[2024-02-29 21:18] LABS: Urine Blood TRACE /uL (Negative); Urine Clarity Clear (Clear); Urine Color Yellow (Yellow); Urine Mucus FEW (None Seen); Urine Protein, UAD TRACE (Negative); Urine Specific Gravity 1.019 (1.001-1.035); Urine Urobilinogen Normal (Negative); Urine WBC 17 /hpf (0 - 5)
[2024-02-29] MEDS: IOHEXOL 300 MG/ML 100ML BOTTLE IJ ONE (22:55)
[2024-03-01] MEDS: metroNIDAZOLE 500MG/100ML 100 ML IV ONE (00:45)
[2024-03-01] MEDS: ceFAZolin 2 GM/D5W50ml 50 ML IV ONE (00:45)
[2024-03-01] MEDS: SODIUM CHLORIDE 0.9% 1,000 ML IV ONE (02:30)
[2024-03-01] MEDS: MORPHINE SULFATE 4 MG/ML SYR/VIAL IV ONE (02:30)
[2024-03-01] MEDS: ONDANSETRON HCL 4 MG/2 ML VIAL IV ONE (02:30)
[2024-03-01 04:37] VITALS: BP 141/78; PULSE 90; RESP 16; TEMP 99.4; O2SAT 96
== END 2024-03-01 04:52 | disposition short-term general hospital (02) ==
LOC: ER 19:19
DX: K80.50 Calculus of bile duct without cholangitis or cholecystitis without obstruction (principal); R51.9 Headache, unspecified; E11.22 Type 2 diabetes mellitus with diabetic chronic kidney disease; I13.0 Hypertensive heart and chronic kidney disease with heart failure and stage 1 through stage 4 chronic kidney disease, or unspecified chronic kidney disease; N18.9 Chronic kidney disease, unspecified; I50.9 Heart failure, unspecified; J45.909 Unspecified asthma, uncomplicated; Z20.822 Contact with and (suspected) exposure to COVID-19; Z86.73 Personal history of transient ischemic attack (TIA), and cerebral infarction without residual deficits; Z90.49 Acquired absence of other specified parts of digestive tract
CPT/HCPCS: 36415; 71046; 74177; 80053; 81001; 84484; 85025; 87426; 87804; 93005; 96361; 96365; 96375; 99285; J0690; J2270; J2405; J3490; J7030; Q9967

== ENCOUNTER 2024-04-01 01:59 | Emergency (ER) | payer MEDICAID ==
[~2024-04-01] VITALS: Ht 147.3 cm; Wt 65.9 kg
[2024-04-01 02:38] LABS: Urine Bacteria None Seen /hpf (None Seen)
[2024-04-01 03:14] LABS: Urine Blood Negative /uL (Negative); Urine Clarity Clear (Clear); Urine Color Yellow (Yellow); Urine Mucus FEW (None Seen); Urine Protein, UAD TRACE (Negative); Urine Specific Gravity 1.028 (1.001-1.035); Urine Urobilinogen 3 mg/dL (Negative); Urine WBC 4 /hpf (0 - 5); Urine pH 6.5 (5.0-9.0)
[2024-04-01 03:34] VITALS: BP 136/73; PULSE 90; RESP 13; TEMP 98.9; O2SAT 96
[2024-04-01] MEDS: ONDANSETRON ODT 4 MG TAB PO ONE (03:37)
[2024-04-01] MEDS: HYDROcodone-ACET 5/325MG TAB PO ONE (03:38)
[2024-04-01 03:45] VITALS: PULSE 90
[2024-04-01] MEDS ORDERED: LEVO500T91 PO (04:39)
== END 2024-04-01 04:55 | disposition home or self-care (01) ==
LOC: ER 01:59
DX: N39.0 Urinary tract infection, site not specified (principal); J45.909 Unspecified asthma, uncomplicated; I50.9 Heart failure, unspecified; E11.22 Type 2 diabetes mellitus with diabetic chronic kidney disease; N18.9 Chronic kidney disease, unspecified; E78.5 Hyperlipidemia, unspecified; I25.2 Old myocardial infarction; E66.9 Obesity, unspecified; Z68.30 Body mass index [BMI] 30.0-30.9, adult; Z86.73 Personal history of transient ischemic attack (TIA), and cerebral infarction without residual deficits; Z90.49 Acquired absence of other specified parts of digestive tract; Z98.890 Other specified postprocedural states; Z95.1 Presence of aortocoronary bypass graft; Z79.52 Long term (current) use of systemic steroids; Z79.899 Other long term (current) drug therapy
CPT/HCPCS: 74176; 81001; 93005; 99284; Q0162

== ENCOUNTER → 2024-09-08 | Outpatient (CLI) | payer MEDICAID ==
[~2024-09-08] VITALS: Ht 149.9 cm; Wt 68.0 kg
[~2024-09-08] MED LIST changes: +LEVO500T91 PO
[2024-09-08] MEDS: REGADENOSON 0.4 MG/5 ML SYRG IV ONE (12:59)
--- NOTE | 2024-09-13 13:53 | DVHSR ---
APPROVED REPORT Exam: Nuclear Stress Test Indication: Chest pain BMI: 0 Medical History Medical History: HTN, CHF, Diabetes, Hyperlipidemia Allergies: No known drug allergies Stress Test Details Stress Test: Pharmacologic stress testing performed using 0.4 mg of regadenoson per 5 mL given IV ov er 10 seconds. HR Resting HR: 84 bpmMax Heart Rate (APMHR): 160.223679 bpm Max HR Achieved: 100 bpmTarget HR (85% APMHR): 136.240492 bpm % of APMHR: 62.50 Recovery HR: 90 bpm BP Resting BP: 142/80 mmHg Recovery BP: 129/71 mmHg ECG Resting ECG: Sinus Rhythm Clinical Reason for Termination: Completed protocol Nurse Comments Recieved pt. from [facility]. A/Ox4 on RA. Connected to air sampling and monitoring, VS stable. PIV flushes well. Reviewed POC. Pt. verbalized understanding of procedure including risks and side ef fects, agrees for stress testing. Lexiscan stress test performed per protocol. [employer] tech administered Cardiolite. Pt. tolerated well . Pt. stable, no change on exam. VS returned to baseline. Transferred to [facility] via wheelchair w/ te ch. Stress ECG Conclusion lvef 34% moderate to severe LV dysfunction dilated LV inferolateral wall infarcted with inferior wall infarct apical lateral wall has mild reversibility NM EXAM: Myocardial Perfusion REST/STRESS Imaging Protocol: Rest Tc-99m/Stress Tc-99m 1 day Resting Data Rest SPECT myocardial perfusion imaging was performed in supine position 60 minutes following the int ravenous injection of 15 mCi of Tc-99m Sestamibi. Time of rest injection: 1143 Time of rest imagin Administration Route: IV Administration Site: Right Arm Pharmacologic Stress Pharmacologic stress test was performed by injecting Regadenoson 0.4 mg IV push followed by the intra venous injection of 31 mCi of Tc-99m Sestamibi. Time of stress injection: 1300 Time of stress imagin Administration Route: IV Administration Site: Right Arm Gated Stress SPECT was performed 60 minutes after stress injection. The images were gated to evaluate regional wall motion and calculate left ventricular ejection fracti on. Stress only was performed in the Supine position. Nuclear Conclusion lvef 34% moderate to severe LV dysfunction dilated LV inferolateral wall infarcted with inferior wall infarct apical lateral wall has mild reversibility
== END | disposition home or self-care (01) ==
LOC: XYW 10:48
PROVIDERS: ATTEND Internal Medicine
DX: I11.0 Hypertensive heart disease with heart failure (principal); I50.9 Heart failure, unspecified; R07.9 Chest pain, unspecified; E11.9 Type 2 diabetes mellitus without complications; E78.5 Hyperlipidemia, unspecified
CPT/HCPCS: 78452; 93017; A9500

== ENCOUNTER 2024-11-10 19:28 | Emergency (ER) | payer MEDICAID ==
[~2024-11-10] VITALS: Ht 147.3 cm; Wt 69.7 kg
[2024-11-10 20:04] VITALS: BP 150/79; PULSE 82; RESP 16; TEMP 98.6; O2SAT 96
[2024-11-10] MEDS ORDERED: ACET500T58 PO (20:50)
--- NOTE | 2024-11-10 20:52 | ED.PDOC ---
Musculoskeletal HPI Comments 59-year-old female presents to ER with complaints of right hand pain x 30 minutes. Patient reports she started experiencing tenderness/swelling to right hand 30 minutes prior to arrival to ER while laying on her couch. She denies hitting her right hand against anything or any known injury. She reports 6/10 tenderness to right hand without radiation. Denies numbness/tingling, wrist pain or any further symptoms/complaints Chief Complaint: Upper Extremity Time Seen by MD: 19:38 Primary Care Provider: JUAN MIGUEL Hernandez Notes: Nurses Notes, Medications, Allergies Allergies: Coded Allergies: NO KNOWN ALLERGIES (Unverified , 09/08/24) Home Meds Active Scripts Acetaminophen (Acetaminophen) 500 Mg Tab, 500 MG PO Q4HPRN, #30 TAB 0 Refills Prov:ARYAN JOE 11/10/24 Levofloxacin Hemihydrate (LEVAQUIN 500 MG) 500 Mg Tab, 1 TAB PO DAILY, #7 TAB Prov:GERSON CAMPOS MD 04/01/24 Prednisone (Prednisone) 20 Mg Tab, 40 MG PO DAILY for 5 Days, #10 TAB Prov:BRIANNE MA CUSTOMER RESPONSE REPRESENTATIVE 10/31/23 Nabumetone (Nabumetone) 500 Mg Tab, 1 TAB PO BID PRN, #20 TAB Prov:BRIANNE MA 10/31/23 Ondansetron Odt 4MG Tab (ZOFRAN PO) 4 Mg Tb, 4 MG PO Q8HP PRN for 5 Days, #15 TAB ODT TAB-DISSOLVE IN MOUTH, THEN SWALLOW Prov:MARTHA CHANG MD 11/25/22 Nitrofurantoin Monohydrate Mac (Macrobid) 100 Mg Cap, 100 MG PO BID for 7 Days, #14 CAP Prov:MARTHA CHANG MD 11/25/22 Tramadol Hcl (Tramadol Hcl) 50 Mg Tab, 50 MG PO Q6HP PRN for 5 Days, #20 TAB Prov:MARTHA CHANG MD 11/25/22 Sulfamethoxazole W/Trimethopri (Bactrim Ds Tablet) 1 Tab Tb, 1 TAB PO BID for 10 Days, #20 TAB Prov:SINDI LOCKE DO 11/25/22 Sucralfate (Sucralfate) 1 Gm Tab, 1 GM PO TIDWM, #90 TAB Prov:BARBARA HARIKNS MD 09/16/22 Pantoprazole Sodium Sesquihydr (Pantoprazole Sodium) 40 Mg Tab, 40 MG PO DAILY, #60 TAB Prov:BARBARA HARKINS MD 09/16/22 Reported Medications Clopidogrel Bisulfate (CLOPIDOGREL) 75 Mg Tab 09/01/22 Carvedilol (Carvedilol) 6.25 Mg Tab, 1 TAB PO BID 09/01/22 Sacubitril-Valsartan (Entresto 24-26 mg) 1 Tab Tab, 1 TAB PO BID 09/01/22 Rosuvastatin Calcium (Rosuvastatin Calcium) 40 Mg Tab, 1 TAB DAILY 09/01/22 Spironolactone (Spironolactone) 25 Mg Tab, 1 TAB PO DAILY 09/01/22 Furosemide (Furosemide) 40 Mg Tab, 1 TAB PO DAILY 09/01/22 Information Source: Patient Mode of Arrival: Ambulatory Past Medical History PAST MEDICAL HISTORY: Asthma, CHF, CKF, CVA, DM, High Lipids, [place], UTI'S Surgical History: Appendectomy, CABG, Cholecystectomy, , [employer] MANAGER POOL History: No Pertinent MANAGER POOL History Family History Family History: Unknown Social History Smoker: Non-Smoker Alcohol: Denies ETOH Use Drugs: Denies Drug Use Lives In: Home Constitutional: denies: chills, diaphoresis, fatigue, fever, malaise, sweats, weakness, others EENTM: denies: blurred vision, double vision, ear bleeding, ear discharge, ear drainage, ear pain, ear ringing, eye pain, eye redness, hearing loss, mouth pain, mouth swelling, nasal discharge, nose bleeding, nose congestion, nose pain, photophobia, tearing, throat pain, throat swelling, voice changes, others Respiratory: denies: cough, hemoptysis, orthopnea, SOB at rest, shortness of breath, SOB with excertion, stridor, wheezing, others Cardiovascular: denies: chest pain, dizzy spells, diaphoresis, Dyspnea on exertion, edema, irregular heart beat, left arm pain, lightheadedness, palpitations, PND, syncope, others Gastrointestinal: denies: abdomen distended, abdominal pain, blood streaked bowels, constipated, diarrhea, dysphagia, difficulty swallowing, hematemesis, melena, nausea, poor appetite, poor fluid intake, rectal bleeding, rectal pain, vomiting, others Genitourinary: denies: abnormal vagina bleeding, burning, dyspareunia, dysuria, flank pain, frequency, hematuria, incontinence, pain, , vagina discharge, urgency, others Neurological: denies: dizziness, fainting, headache, left sided numbness, left sided weakness, numbness, paresthesia, pre-existing deficit, right sided numbness, right sided weakness, seizure, speech problems, tingling, tremors, weakness, others Musculoskeletal: reports: others (As stated in HPI) Integumetry: reports: others (As stated in HPI) Allergic/Immunocompromised: denies: Difficulty Healing, Frequent Infections, Hives, Itching, others Hematologic/Lymphatic: denies: anemia, blood clots, easy bleeding, easy bruising, swollen glands, others Endocrine: denies: excessive hunger, excessive sweating, excessive thirst, excessive urination, flushing, intolerance to cold, intolerance to heat, unexplained weight gain, unexplained weight loss, others Psychiatric: denies: anxiety, bipolar disorder, depression, hopeless, panic disorder, schizophrenia, sleepless, suicidal, others Physical Exam General Appearance: No Apparent Distress HEENT: PERRL/EOMI Neck: Full Range of Motion, Non-Tender, Normal Respiratory: Chest Non-Tender, Lungs Clear, No Accessory Muscle Use, No Respiratory Distress, Normal Breath Sounds Cardiovascular: No Murmur, No Gallop, Regular Rate/Rhythm Breast Exam: Deferred Gastrointestinal: NOT DONE Genitalia: Deferred Pelvic: Deferred Rectal: Deferred Extremities: Normal capillary refill, Normal range of motion Neurologic: Alert, No Motor Deficits, Normal Affect, Normal Mood, No Sensory Deficits Cerebellar Function: Normal Reflexes: Normal Skin: Dry, Warm Peripheral Pulses: 2+ Radial (R), 2+ Radial (L), 2+ Brachial (R), 2+ Brachial (L) Lymphatic: No Adenopathy Was a procedure done? Was a procedure done?: No Sedation Sedation?: No Images 1 - TTP/mild swelling/ecchymosis noted to dorsal surface of right hand. No further skin changes noted. No TTP to right wrist noted. Pulses intact Differential Diagnosis EXT Differential Diagnosis: Cellulitis, Fracture, Dislocation, Neurovascular injury X-Ray, Labs, Meds, VS Vital Signs Date Time Temp Pulse Resp B/P (MAP) Pulse Ox O2 Delivery O2 Flow Rate FiO2 11/10/24 20:04 82 16 96 Room Air 11/10/24 20:04 98.6 82 16 150/79 (102) 96 98.6 11/10/24 19:35 98.6 82 16 150/79 (102) 96 98.6 PATIENT: MICAH CARMONA MACCT: [id number]: [id number] : 1965 LOC: ER ROOM / BED: / AGE / SEX: 59 / F ADM STATUS: REG ER SERVICE 42 ORDERING PHYSICIAN: ARYAN JOE PROCEDURE(s): RHAN - R HAND 3 VIEW XRAY REASON: right hand pain ORDER NUMBER(s): [id number], ACCESSION NUMBER(s): [id number] XY R HAND 3 VIEW XRAY, INDICATION: right hand pain TECHNICAL DATA: Frontal, oblique and lateral views were obtained of the right hand. COMPARISON: None FINDINGS: No fracture is identified. Joint spaces are maintained. Alignment is anatomic. Soft tissues are within normal limits. IMPRESSION: No acute fracture or dislocation of the right hand. ATED BY: RUSTY BALDERAS DO DICTATED DATE/TIME: 11/10/242206 SIGNED BY: RUSTY BALDERAS DO SIGNED DATE/TIME: 11/10/242206 CC: Right hand x-ray reviewed Patient neurovascularly intact Advised on rest/no strenuous activity, elevation and alternate ice on/off as needed for pain/swelling Advised to follow up with PCP in 1-2 days Patient verbalized understanding and agreeable with current plan of care Advised to return to ER immediately if symptoms worsen Images Reviewed?: Images reviewed and evaluated by me Time of 1ST Reevaluation: 20:20 Reevaluation 1ST: N/A Patient Education/Counseling: Diagnosis, Treatment, Prognosis, Need For Follow Up Family Education/Counseling: No Family Present Departure 1 Departure Time of Disposition: 20:42 Impression: Primary Impression: Contusion of hand, right Qualified Codes: S60.221A - Contusion of right hand, initial encounter Disposition: HOME / SELF CARE / HOMELESS Condition: Stable e-Prescriptions Acetaminophen (Acetaminophen) 500 Mg Tab 500 MG PO Q4HPRN, #30 TAB 0 Refills Prov: ARYAN JOE 11/10/24 Discharged With: Self Critical Care Note Critical Care Time?: No Stability Stability form required: No Heart Score Heart Score: Heart Score Response (Comments) Value History N/A 0 EKG N/A 0 Age N/A 0 Risk Factors N/A 0 Troponin N/A 0 Total 0 ARYAN JOE Nov 10, 2024 20:52
--- NOTE | 2024-11-10 22:10 | DVH ---
XY R HAND 3 VIEW XRAY, INDICATION: right hand pain TECHNICAL DATA: Frontal, oblique and lateral views were obtained of the right hand. COMPARISON: None FINDINGS: No fracture is identified. Joint spaces are maintained. Alignment is anatomic. Soft tissues are withi n normal limits. IMPRESSION: No acute fracture or dislocation of the right hand.
== END 2024-11-10 22:29 | disposition home or self-care (01) ==
LOC: ER 19:28
DX: S60.221A Contusion of right hand, initial encounter (principal); J45.909 Unspecified asthma, uncomplicated; E78.5 Hyperlipidemia, unspecified; I50.9 Heart failure, unspecified; E11.9 Type 2 diabetes mellitus without complications; Z86.73 Personal history of transient ischemic attack (TIA), and cerebral infarction without residual deficits; Z87.440 Personal history of urinary (tract) infections; Z79.52 Long term (current) use of systemic steroids; Z79.899 Other long term (current) drug therapy; Z90.49 Acquired absence of other specified parts of digestive tract; Z95.1 Presence of aortocoronary bypass graft; Z98.890 Other specified postprocedural states; X58.XXXA Exposure to other specified factors, initial encounter; Y93.89 Activity, other specified; Y92.89 Other specified places as the place of occurrence of the external cause; Y99.8 Other external cause status
CPT/HCPCS: 73130